=== PATIENT | female | born 1960 | race American Indian/Alaskan Native ===

== ENCOUNTER 2017-11-18 06:18 | Day surgery (SDC) | payer OTHER ==
[2016-09-10 14:39] VITALS: BMI 27.8
[2017-11-18] MEDS ORDERED: Propofol 10 mg/ml Inj (20 ML) ONE (08:13)
--- NOTE | 2017-11-18 08:19 | CP.SDSHP ---
Same Day Surgery H & P - History Proposed Procedure: colonoscopy Pre-Op Diagnosis: screening for colon cancer - Previous Medical/Surgical History Cardiac: Other (hyperlipidemia, ) Endocrine/Metabolic: Diabetes Neuro: Other (RA, Sciatica) Pain: 2.Mild Pain Previous Surgical History: Exploratory Laparotomy for bowel obstruction/ adhesions - Allergies Allergies: Allergies No Known Allergies Allergy (Verified 09/10/16 14:07) - Physical Exam Vital Signs: Vital Signs 11/18/17 06:47 Temperature 97.1 F L Pulse Rate 73 Respiratory 19 Rate Blood Pressure 122/78 O2 Sat by Pulse 97 Oximetry Mental Status: Alert & Oriented x3 Neuro: WNL Heart: WNL Lungs: WNL GI: WNL - Impression Impression: screening for colon cancer. Family h/o colon cancer Pt. Evaluated Today:Candidate for Anesthesia & Procedure: Yes - Date & Time Date: 11/18/17 Time: 08:19 Short Stay Discharge - Short Stay Discharge Admitting Diagnosis/Reason for Visit: SCREENING Disposition: HOME/ ROUTINE
[2017-11-18] MEDS ORDERED: Lactated Ringer's 1,000 ML IV ONE (08:45)
[2017-11-18 09:06] VITALS: TEMP 96.8
[2017-11-18 09:27] VITALS: RESP 18
[2017-11-18 09:32] VITALS: BP 129/79; PULSE 78; O2SAT 99
== END 2017-11-18 09:30 | disposition home or self-care (01) ==
LOC: C.ENDO 06:18
PROVIDERS: ATTEND Internal Medicine Gastroenterology
DX: Z12.11 Encounter for screening for malignant neoplasm of colon (principal); K62.1 Rectal polyp; K64.8 Other hemorrhoids
CPT/HCPCS: 45380; 82948; 88305; J2001; J2704; J7120